=== PATIENT | male | born 1980 | race American Indian/Alaskan Native ===

== ENCOUNTER 2018-03-01 17:45 | Emergency (ER) | payer OTHER ==
[2018-03-01] MEDS ORDERED: CATAPRES PO ONE (18:08)
[2018-03-01] MEDS ORDERED: MOTRIN PO ONE (18:08)
[2018-03-01] MEDS ORDERED: BOOSTRIX IM ONE (18:10)
--- NOTE | 2018-03-01 18:13 | Emergency Department Report ---
ED General Adult HPI - General Chief complaint: Extremity Injury, Upper Stated complaint: HIGH BLOOD PRESSURE Time Seen by Provider: 03/01/18 18:10 Source: patient Mode of arrival: Ambulatory Limitations: No Limitations - History of Present Illness Initial comments: Patient was referred to the ED from the urgent care clinic regarding elevated blood pressure. 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 He reports a history of HTN diagnosed two years ago, however he has been non- compliant with medication regimen for two years. He denies chest pain, headaches , blurred vision, edema, dizziness or difficulty breathing MD Complaint: elevated blood pressure, right hand and leg injury Onset/Timin -: hour(s) Time: 16:20 Location: right, upper extremity, lower extremity Radiation: non-radiation Severity scale (0 -10): 6 Quality: aching Consistency: constant Improves with: none Worsens with: movement Associated Symptoms: denies: confusion, chest pain, cough, diaphoresis, fever/ chills, headaches, loss of appetite, malaise, nausea/vomiting, rash, seizure, shortness of breath, syncope, weakness Treatments Prior to Arrival: none - Related Data Previous Rx's Medication Instructions Recorded Last Taken Type Amlodipine Besylate [Norvasc] 10 mg PO DAILY #30 tablet 03/01/18 Unknown Rx Ibuprofen 800 mg PO TID #30 tablet 03/01/18 Unknown Rx Allergies Allergy/AdvReac Type Severity Reaction Status Date / Time No Known Allergies Allergy Unverified 03/01/18 17:50 ED Review of Systems ROS: Stated complaint: HIGH BLOOD PRESSURE Other details as noted in HPI Constitutional: denies: chills, fever Eyes: denies: eye pain, eye discharge, vision change ENT: denies: ear pain, throat pain, dental pain, hearing loss, epistaxis, congestion Respiratory: denies: cough, orthopnea, shortness of breath, SOB with exertion, SOB at rest, stridor, wheezing Cardiovascular: denies: chest pain, palpitations, dyspnea on exertion, orthopnea , edema, syncope, paroxysmal nocturnal dyspnea Gastrointestinal: denies: abdominal pain, nausea, vomiting, diarrhea, constipation, hematemesis, melena Genitourinary: denies: urgency, dysuria Musculoskeletal: arthralgia (right hand and lower extremity). denies: back pain , joint swelling Skin: rash (abrasion to right hand). denies: change in color, change in hair/ nails, pruritus Neurological: denies: headache, weakness, numbness, paresthesias, confusion, abnormal gait, vertigo Psychiatric: denies: anxiety, depression Hematological/Lymphatic: denies: easy bleeding, easy bruising ED Past Medical Hx - Past Medical History Previous Medical History?: No - Surgical History Past Surgical History?: No - Social History Smoking Status: Current Every Day Smoker Substance Use Type: None - Medications Home Medications: Home Medications Medication Instructions Recorded Confirmed Last Taken Type Amlodipine Besylate [Norvasc] 10 mg PO DAILY #30 tablet 03/01/18 Unknown Rx Ibuprofen 800 mg PO TID #30 tablet 03/01/18 Unknown Rx ED Physical Exam - General Limitations: No Limitations General appearance: alert, in no apparent distress - Head Head exam: Present: atraumatic, normocephalic - Eye Eye exam: Present: normal appearance, PERRL, EOMI - ENT ENT exam: Present: normal exam - Neck Neck exam: Present: normal inspection, full ROM. Absent: tenderness, meningismus, lymphadenopathy, thyromegaly - Respiratory Respiratory exam: Present: normal lung sounds bilaterally. Absent: respiratory distress, wheezes, rales, rhonchi, stridor, chest wall tenderness, accessory muscle use, decreased breath sounds, prolonged expiratory - Cardiovascular Cardiovascular Exam: Present: regular rate, normal rhythm, normal heart sounds. Absent: bradycardia, tachycardia, irregular rhythm, systolic murmur, diastolic murmur, rubs, gallop - Extremities Exam Extremities exam: Present: normal inspection, full ROM, normal capillary refill - Expanded Upper Extremity Exam Right Shoulder Exam: Present: normal inspection, full ROM Upper Arm exam: Present: normal inspection, full ROM Elbow exam: Present: normal inspection, full ROM Forearm Wrist exam: Present: normal inspection, full ROM Hand Wrist exam: Present: full ROM, tenderness, swelling, abrasion (fourth and fifth fingers). Absent: laceration, ecchymosis, deformity, crepidus, dislocation, erythema, amputation, nail avulsion, subungual hematoma Neuro motor exam: Present: wrist extension intact, thumb opposition intact, thumb IP flexion intact, thumb adduction intact, fingers 2-5 abduction intact Neurosensory exam: Present: 2-point discrimination, radial nerve intact, ulnar nerve intact, median nerve intact Vascular: Present: normal capillary refill, radial pulse (2+), brachial pulse (2 +), ulnar pulse (2+). Absent: vascular compromise, Pallo, pulse deficit radial art, pulse deficit ulnar art, pulse deficit brachial art - Expanded Lower Extremity Exam Right Hip exam: Present: normal inspection, full ROM, pelvic stability Upper Leg exam: Present: normal inspection, full ROM Knee exam: Present: normal inspection, full ROM Lower Leg exam: Present: full ROM, tenderness (right coffey). Absent: swelling, abrasion, laceration, ecchymosis, deformity, crepidus, dislocation, erythema, palpable cord, Luz's sign Ankle exam: Present: normal inspection, full ROM Foot/Toe exam: Present: normal inspection, full ROM Neuro vascular tendon exam: Present: no vascular compromise, significant pain with passive ROM of distal joint. Absent: pulse deficit, abnormal cap refill, motor deficit, sensory deficit, tendon deficit, extremity cold to touch, pallor , abnormal 2-point discrimination, decreased fine/light touch, foot drop, peroneal nerve deficit Gait: Positive: observed and normal - Back Exam Back exam: Present: normal inspection, full ROM. Absent: tenderness, CVA tenderness (R), CVA tenderness (L), muscle spasm - Neurological Exam Neurological exam: Present: alert, oriented X3, CN II-XII intact, normal gait, reflexes normal. Absent: motor sensory deficit - Psychiatric Psychiatric exam: Present: normal affect, normal mood - Skin Skin exam: Present: warm, dry, intact, normal color ED Course Vital Signs 03/01/18 03/01/18 03/01/18 17:50 18:22 18:23 Temperature 98.1 F Pulse Rate 96 H 85 Respiratory 18 18 Rate Blood Pressure 197/108 198/107 Blood Pressure [Left] O2 Sat by Pulse 99 Oximetry 03/01/18 18:52 Temperature Pulse Rate Respiratory Rate Blood Pressure Blood Pressure 185/105 [Left] O2 Sat by Pulse Oximetry - Reevaluation(s) Reevaluation #1: 03/01/18 18:20 antihypertensive, analgesic, tetanus and radiology studies ordered ED Medical Decision Making - Lab Data Temp Pulse Resp BP Pulse Ox 98.1 F 68 17 155/96 99 03/01/18 17:50 03/01/18 19:31 03/01/18 19:31 03/01/18 19:31 03/01/18 17:50 - Radiology Data Radiology results: image reviewed alek In Minutes: 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 FINDINGS: No acute fracture or dislocation is seen. No focal osseous lesions are identified. IMPRESSION: No acute fracture is seen Fluoro Time In Minutes: 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 FINDINGS: No acute fracture or dislocation is seen. No focal osseous lesions. IMPRESSION: No acute fracture is seen - Medical Decision Making During the course of ED, antihypertensive, analgesic, tetanus and radiology studies ordered. The radiology studies detected no acute fracture or dislocation is seen. No focal osseous lesions. His blood pressure went from 197/ 108 to 156/97 after administration of Clonidine 0.2 mg. Patient was sent home with a wrist splint for his right hand, prescriptions for Ibuprofen and Norvasc , instructed to follow with selective referral given at discharge, he verbalized understanding - Differential Diagnosis Hypertension, Right Hand Pain, Right Leg Pain Critical care attestation.: If time is entered above; I have spent that time in minutes in the direct care of this critically ill patient, excluding procedure time. ED Disposition Clinical Impression: Right hand pain, Right leg pain Hypertension Qualifiers: Hypertension type: essential hypertension Qualified Code(s): I10 - Essential ( primary) hypertension Disposition: TO HOME OR SELFCARE Is pt being admited?: No Does the pt Need Aspirin: No Condition: Stable Instructions: Hypertension (ED), Arthralgia (ED) Additional Instructions: Take medication as directed. Follow up with the selective referral given at discharge Prescriptions: Amlodipine Besylate [Norvasc] 10 mg PO DAILY #30 tablet Ibuprofen 800 mg PO TID #30 tablet Referrals: JAMES ALDANA MD [Referring] - 3-5 Days MELI ARDON MD [Staff Physician] - 3-5 Days FATIMAH KOVACS MD [Staff Physician] - 3-5 Days Forms: Work/School Release Form(ED) Time of Disposition: 19:53
--- NOTE | 2018-03-01 19:19 | XRay Report ---
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 FINDINGS: No acute fracture or dislocation is seen. No focal osseous lesions are identified. IMPRESSION: No acute fracture is seen
--- NOTE | 2018-03-01 19:20 | XRay Report ---
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 FINDINGS: No acute fracture or dislocation is seen. No focal osseous lesions. IMPRESSION: No acute fracture is seen
[2018-03-01 19:32] VITALS: BP 155/96
== END 2018-03-01 20:21 | disposition home or self-care (01) ==
LOC: ED 17:45
DX: I10 Essential (primary) hypertension (principal); M79.641 Pain in right hand; M79.604 Pain in right leg; F17.200 Nicotine dependence, unspecified, uncomplicated
CPT/HCPCS: 90471; 90715